=== PATIENT | female | born 1995 | race Caucasian/White ===

== ENCOUNTER 2020-05-11 14:08 | Emergency (ER) | payer OTHER ==
[~2020-05-11 14:08] MED LIST: KEFLEX500 MG PO
[2020-05-11 16:10] LABS: BILIRUBIN NEGATIVE (NEGATIVE); BLOOD NEGATIVE Ery/uL (NEGATIVE); CLARITY CLEAR (CLEAR); COLOR YELLOW (YELLOW); GLUCOSE (U) NORMAL (NORMAL); LEUKOCYTES NEGATIVE Leu/uL (NEGATIVE); NITRITE NEGATIVE (NEGATIVE); PROTEIN NEGATIVE (NEGATIVE); UROBILINOGEN 0.2 mg/dL (0.2-1.0)
[2020-05-11 16:44] LABS: BASOPHIL 0.4 % (0-2); EOSINOPHIL 0.9 % (0-5); HCT 43.2 % (37.0-47.0); HGB 14.5 g/dl (12.5-16.0); LYMPHOCYTE 21.4 % (15-48); MCH 30.1 pg (25.0-31.0); MCHC 33.6 g/dL (32.0-36.0); MCV 89.6 fL (78.0-100.0); MPV 9.4 fL (6.0-9.5); NEUTROPHIL 71.1 % (41-80); NRBC 0; PLT 282 K/uL (150-400); RBC 4.82 M/uL (4.20-5.40); RDW 12.6 % (11.5-14.0); WBC 8.1 K/uL (4.0-10.5)
[2020-05-11 16:48] LABS: BUN/CREAT RATIO (CALC) 31.1 RATIO; CREATININE 0.45 mg/dL (0.51-0.95)
== END 2020-05-11 16:42 | disposition home or self-care (01) ==
LOC: FER 14:08
PROVIDERS: Nurse Practitioner Family
DX: R10.9 Unspecified abdominal pain (principal); R11.0 Nausea; Z98.890 Other specified postprocedural states; Z88.0 Allergy status to penicillin; Z88.8 Allergy status to other drugs, medicaments and biological substances
CPT/HCPCS: 36415; 80048; 81003; 85025; 99284

== ENCOUNTER 2020-10-26 17:17 | Emergency (ER) | payer OTHER ==
[2020-10-26 19:01] LABS: BASOPHIL 0.5 % (0-2); EOSINOPHIL 3.8 % (0-5); HCT 42.1 % (37.0-47.0); MCH 29.7 pg (25.0-31.0); MCHC 33.3 g/dL (32.0-36.0); MCV 89.2 fL (78.0-100.0); MONOCYTE 6.5 % (0-12); MPV 8.9 fL (6.0-9.5); NEUTROPHIL 60.8 % (41-80); NRBC 0; PLT 268 K/uL (150-400); RBC 4.72 M/uL (4.20-5.40); RDW 12.5 % (11.5-14.0); WBC 8.1 K/uL (4.0-10.5)
[2020-10-26 19:22] LABS: BUN/CREAT RATIO (CALC) 20.3 RATIO; CREATININE 0.64 mg/dL (0.51-0.95); POTASSIUM 3.7 mmol/L (3.5-5.1)
[2020-10-26] MEDS ORDERED: NAPROXEN500 MG PO (19:48)
[2020-10-26] MEDS ORDERED: FLEXERIL5 MG PO (19:48)
== END 2020-10-26 20:27 | disposition home or self-care (01) ==
LOC: FER 17:17
PROVIDERS: Nurse Practitioner Family
DX: M43.6 Torticollis (principal); F17.290 Nicotine dependence, other tobacco product, uncomplicated; Z88.0 Allergy status to penicillin
CPT/HCPCS: 36415; 72040; 80048; 85025; 96372; J1100; J1885